=== PATIENT | female | born 1985 | race African-American/Black ===

== ENCOUNTER 2016-09-07 14:33 | Emergency (ER) | payer MEDICAID ==
[~2016-09-07] VITALS: Ht 157.5 cm; Wt 108.9 kg
[2016-09-07 14:47] VITALS: BP 152/88
--- NOTE | 2016-09-07 17:25 | NUR ---
PT TO OVERFLOW.
--- NOTE | 2016-09-07 17:28 | NUR ---
PATIENT PRESENTS TO ED WITH C/O RASH X2 DAYS . PT STATES SHE NOTICED THE RASH 2 DAYS AGO AND FEELS IT'S GOTTEN WORSE . DENIES N/V/D; RED, RAISED, RASHY AREAS SCATTERED TO ELAINA UE, ELAINA LE AND TRUNK. AAOX4 WITH EVEN AND STEADY GAIT; LUNGS CLEAR BL; HR EVEN AND REGULAR; PT DENIES ANY FEVER, CP, SOB, OR COUGH AT THIS TIME; PATIENT STATES PAIN OF 0/10 AT THIS TIME; VSS; PATIENT POSITIONED IN CHAIR. ER MD MADE AWARE OF PT STATUS.
--- NOTE | 2016-09-07 17:57 | NUR ---
Patient discharged with v/s stable. Written and verbal after care instructions given and explained. Patient alert, oriented and verbalized understanding of instructions. Ambulatory with steady gait. All questions addressed prior to discharge. ID band removed. Patient advised to follow up with PMD. Rx of PREDNISONE AND BENADRYL given. Patient educated on indication of medication including possible reaction and side effects. Opportunity to ask questions provided and answered.
[2016-09-07 17:58] VITALS: BP 152/88
== END 2016-09-07 17:57 | disposition home or self-care (01) ==
LOC: MED 14:33
DX: T78.49XA Other allergy, initial encounter (principal); R21 Rash and other nonspecific skin eruption; F17.210 Nicotine dependence, cigarettes, uncomplicated; Z91.040 Latex allergy status; X58.XXXA Exposure to other specified factors, initial encounter
CPT/HCPCS: 99283